=== PATIENT | female | born 1955 | race Caucasian/White ===

== ENCOUNTER 2019-03-15 09:18 | Outpatient (CLI) | payer MEDICARE, OTHER ==
[2019-03-15] MEDS ORDERED: Iopamidol-370 76% 500 ML 1 ML ONE (11:00)
--- NOTE | 2019-03-15 12:14 | CT ---
CT ABDOMEN AND PELVIS WITH AND WITHOUT IV CONTRAST: HISTORY: Left upper quadrant pain. Left flank pain. Elevated CEA levels on blood work. FINDINGS: There are minimal dependent changes in the lung bases. A small hiatal hernia is noted. No calcified g allstones are seen. The liver demonstrates diffusely decreased attenuation compared to the spleen, co nsistent with fatty infiltration. The spleen, pancreas and adrenal glands are normal. No calculi are seen in the kidneys, ureters or urinary bladder on either side. No hydroureteronephros is is seen. There is a 9 mm fat-containing lesion in the left renal cortex, consistent with angiomyol ipoma. No free air, free fluid or lymphadenopathy is seen in the abdomen or pelvis. There are vascular calci fications without evidence of aneurysmal dilatation of the abdominal aorta. Small bowel loops are not abnormally dilated. There are degenerative changes in the spine. The patient is post hysterectomy. T here is mild sigmoid diverticulosis. IMPRESSION: 1. Fatty liver. 2. Small hiatal hernia. 3. Small left renal angiomyolipoma. 4. No CT evidence of urinary tract calculi or obstruction. 5. Mild sigmoid diverticulosis. POS: [facility]
== END 2019-03-15 09:19 | disposition home or self-care (01) ==
LOC: BICCT 09:18
PROVIDERS: ATTEND Internal Medicine
DX: R97.0 Elevated carcinoembryonic antigen [CEA] (principal); R47.01 Aphasia; R10.12 Left upper quadrant pain; K76.0 Fatty (change of) liver, not elsewhere classified; K44.9 Diaphragmatic hernia without obstruction or gangrene; K57.30 Diverticulosis of large intestine without perforation or abscess without bleeding; D17.9 Benign lipomatous neoplasm, unspecified
CPT/HCPCS: 74178; 82565; Q9967

== ENCOUNTER 2020-05-24 12:33 | Inpatient (IN) | payer MEDICARE, OTHER ==
[~2020-05-24 12:33] MED LIST: Aminocaproic Acid 5 GM/20 ML VIAL ONE; Calcium Chloride 1 GM/10 ML Abboject SYRINGE ONE; Cardioplegic Soln 1,000 ML BAG ONE; Dexamethasone 20 MG/5 ML VIAL ONE; Glycopyrrolate 0.2 MG/ML 5 ML SYRINGE ONE; Heparin 30,000 units/30 ml VIAL ONE; Heparin 5,000 UNITS/ML VIAL ONE; Ketorolac Tromethamine 30 MG/ML VIAL ONE; Lidocaine 1% PF 5 ML VIAL ONE; Magnesium Sulfate 1 GM/2 ML VIAL ONE; Mannitol 12.5 GM/50 ML ONE; Nitroglycerin 50 MG/250 ML BOT ONE; Norepinephrine 4 MG/4 ML VIAL ONE; Ondansetron PF 4 MG/2 ML Vial ONE; PROPOFOL 200 MG/20 ML VIAL ONE; Papaverine 60 MG/2 ML VIAL ONE; Potassium Chloride 60 MEQ/30 ML VIAL ONE; Protamine Sulfate 250 MG/25 ML VIAL ONE; Sodium Bicarb 50 MEQ/50 ML Abboject 8.4% SYRINGE ONE; Thrombin 5000 UNITS/5 ML VIAL ONE; Vecuronium 10 MG VIAL ONE
[2020-05-24] MEDS ORDERED: Midazolam HCl 2 mg/2 ml Vial ONE (13:59)
[2020-05-24] MEDS ORDERED: Fentanyl 100 MCG/2 ML VIAL ONE (13:59)
[2020-05-24] MEDS ORDERED: Albumin 5% 250 ML ONE ×2 (15:55)
[2020-05-24] MEDS ORDERED: Post-Op Insulin Drip Protocol IVPB PRN (15:57)
[2020-05-24] MEDS ORDERED: Promethazine HCl 25 MG/ML VIAL IM PRN (15:57)
[2020-05-24] MEDS ORDERED: Hetastarch 6% 500 ML 500 ML IVPB PRN (15:57)
[2020-05-24] MEDS ORDERED: Nitroglycerin 50 MG/250 ML BOT 250 ML IVPB PRN (15:57)
[2020-05-24] MEDS ORDERED: Bisacodyl 10 MG SUPP PR PRN (15:57)
[2020-05-24] MEDS ORDERED: niCARdipine 25 MG in Sodium Chloride 0.9% 250 ML 250 ML IVPB PRN (15:57)
[2020-05-24] MEDS ORDERED: HYDROcodone/Acetaminophen 5/325 mg Tablet PO PRN ×2 (15:57)
[2020-05-24] MEDS ORDERED: Norepinephrine 8 MG/0.9% NS 250 ML IVPB PRN (15:57)
[2020-05-24] MEDS ORDERED: Morphine 2 MG/ML VIAL SLOW IVP PRN (15:57)
[2020-05-24] MEDS ORDERED: hydrALAZINE 20 MG/ML VIAL SLOW IVP PRN (15:57)
[2020-05-24] MEDS ORDERED: Potassium Chloride 20 MEQ/100 ML PREMIX BAG IVPB PRN (15:57)
[2020-05-24] MEDS ORDERED: Bisacodyl 5 MG TAB PO PRN (15:57)
[2020-05-24] MEDS ORDERED: DOPamine 400 MG/D5W 250 ML 250 ML IVPB PRN (15:57)
[2020-05-24] MEDS ORDERED: Fentanyl 100 MCG/2 ML VIAL SLOW IVP PRN ×2 (15:57)
[2020-05-24] MEDS ORDERED: Acetaminophen 325 MG TAB PO PRN (15:57)
[2020-05-24] MEDS ORDERED: Magnesium 2 GM/50 ML 2 GM in Premix Bag 1 BAG IVPB SCH (15:57)
[2020-05-24] MEDS ORDERED: Guaifenesin DM 100-10/5 ML UDCUP PO PRN (15:57)
[2020-05-24] MEDS ORDERED: Mag-Al 1200 mg/1200 mg/30 ML UDCUP PO PRN (15:57)
[2020-05-24 16:08] LABS: Actual Bicarbonate (HCO3a) 20.5 mEq/L (22-28); Analyzer IN Cardio OR; Base Excess (BEa) -3.9 mEq/L (-2.0 to +3.0); CO2 Tension 35.1 mmHg (35.0-45.0); Calcium, Ionized (arterial) 1.13 mmol/L (1.12-1.30); Hemoglobin (Hb) 12.5 g/dL (12.0-16.0); O2 Tension (PaO2), arterial 83.6 mmHg (> 80.0); pH, Arterial 7.38 (7.35-7.45)
[2020-05-24 16:08] LABS: #Basophils 0.1 thou/uL (0.0-0.2); #Eosinphils 0.1 thou/uL (0.0-0.7); #Lymphocytes 1.6 thou/uL (1.20-3.40); #Monocytes 0.9 thou/uL (0.11-0.59); #Neutrophils 13.7 thou/uL (1.40-6.50); %Basophils 0.5 % (0.0-1.0); %Eosinophils 0.6 % (0.0-10.0); %Lymphocytes 9.6 % (21.0-51.0); %Monocytes 5.2 % (0.0-10.0); Hemoglobin 12.7 g/dL (12.0-16.0); Mean Corpuscular Hemoglobin 32.9 pg (27.0-31.0); Mean Platelet Volume 7.3 fL (7.4-10.4); Platelet Count 154 thou/uL (130-400); RBC Distribution Width 11.4 % (11.5-14.5); Red Blood Cell (RBC) Count 3.87 mill/uL (4.20-5.40); White Blood Cell (WBC) Count 16.3 thou/uL (4.8-10.8)
[2020-05-24 16:14] LABS: ALV-art Gradient 157.725 mmHg (0-20); Puncture Site Arterial Line
[2020-05-24 16:14] LABS: INR-International Normal Ratio 1.3; PTT 34.9 sec (22.9-36.1); Prothrombin Time 15.9 sec (12.0-14.7)
[2020-05-24] MEDS ORDERED: HUMULIN R 100 UNITS in Sodium Chloride 0.9% 100 ML IVPB SCH ×2 (16:15→16:30)
[2020-05-24] MEDS ORDERED: Dextrose 50% Abboject 50 ML SYRINGE SLOW IVP PRN ×2 (16:15→16:30)
[2020-05-24] MEDS ORDERED: Dextrose 5% in Water 1,000 ML IV PRN ×2 (16:15→16:30)
[2020-05-24 16:29] LABS: Anion Gap 13 mmol/L (10-20); BUN (Urea Nitrogen) 10 mg/dL (9.8-20.1); Calc. Creatinine Clearance 0 mL/min (70-130); Calcium 8.3 mg/dL (7.8-10.44); Carbon Dioxide 21 mmol/L (23-31); Chloride 112 mmol/L (98-107); Glucose 144 mg/dL (80-115); Potassium 4.3 mmol/L (3.5-5.1); Sodium 142 mmol/L (136-145)
[2020-05-24] MEDS: Insulin Regular 300 UNITS/3 ML VIAL SC PRN ×2 (16:36→21:47)
[2020-05-24] MEDS: CEFAZOLIN 2 GM in Premix Bag 1 BAG IVPB SCH ×2 (16:50→23:40)
[2020-05-24] MEDS: Lactated Ringer's 1,000 ML IV SCH (16:53)
[2020-05-24] MEDS: Ketorolac Tromethamine 30 MG/ML VIAL IVP SCH ×2 (18:10→23:40)
[2020-05-24 19:49] LABS: Actual Bicarbonate (HCO3a) 18.2 mEq/L (22-28); Base Excess (BEa) -2.6 mEq/L (-2.0 to +3.0); Calcium, Ionized (arterial) 1.12 mmol/L (1.12-1.30); Hemoglobin (Hb) 11.6 g/dL (12.0-16.0); Potassium - ABG Lab 3.92 mmol/L (3.70-5.30); pH, Arterial 7.54 (7.35-7.45)
[2020-05-24 20:04] LABS: CO2 Tension 21.6 mmHg (35.0-45.0); Puncture Site Arterial Line
[2020-05-24] MEDS ORDERED: Atorvastatin Calcium 10 MG TAB PO SCH (21:00)
[2020-05-24] MEDS: Famotidine/PF 20 mg/2ml Vial SLOW IVP SCH (21:18)
[2020-05-24 21:23] LABS: Hemoglobin 11.3 g/dL (12.0-16.0)
[2020-05-24] MEDS: Ondansetron PF 4 MG/2 ML Vial IVP PRN (21:23)
[2020-05-24 21:40] LABS: Glucose 166 mg/dL (80-115)
[2020-05-25] MEDS: Lactated Ringer's 1,000 ML IV SCH (03:01)
[2020-05-25] MEDS: Ondansetron PF 4 MG/2 ML Vial IVP PRN (03:01)
[2020-05-25 04:56] LABS: #Lymphocytes 0.6 thou/uL (1.20-3.40); #Monocytes 0.7 thou/uL (0.11-0.59); #Neutrophils 7.9 thou/uL (1.40-6.50); %Basophils 0.1 % (0.0-1.0); %Eosinophils 0.1 % (0.0-10.0); %Lymphocytes 6.3 % (21.0-51.0); %Monocytes 7.5 % (0.0-10.0); %Neutrophils 86.1 % (42.0-75.0); Hemoglobin 9.4 g/dL (12.0-16.0); Mean Corpuscular HGB CONC 33.7 g/dL (32.0-36.0); Mean Corpuscular Hemoglobin 31.6 pg (27.0-31.0); Mean Corpuscular Volume 93.7 fL (78.0-98.0); Mean Platelet Volume 7.6 fL (7.4-10.4); Platelet Count 134 thou/uL (130-400); RBC Distribution Width 11.4 % (11.5-14.5); Red Blood Cell (RBC) Count 2.98 mill/uL (4.20-5.40); White Blood Cell (WBC) Count 9.2 thou/uL (4.8-10.8)
[2020-05-25 05:16] LABS: Anion Gap 10 mmol/L (10-20); BUN (Urea Nitrogen) 16 mg/dL (9.8-20.1); Calc. Creatinine Clearance 98 mL/min (70-130); Calcium 7.4 mg/dL (7.8-10.44); Carbon Dioxide 25 mmol/L (23-31); Chloride 110 mmol/L (98-107); Glucose 129 mg/dL (80-115); Potassium 3.6 mmol/L (3.5-5.1); Sodium 141 mmol/L (136-145)
[2020-05-25] MEDS: Ketorolac Tromethamine 30 MG/ML VIAL IVP SCH ×4 (06:31→23:08)
[2020-05-25] MEDS: Famotidine/PF 20 mg/2ml Vial SLOW IVP SCH (08:24)
[2020-05-25] MEDS: CEFAZOLIN 2 GM in Premix Bag 1 BAG IVPB SCH (08:24)
[2020-05-25] MEDS ORDERED: Aspirin 325 MG TAB PO SCH (09:00)
[2020-05-25] MEDS ORDERED: Nitroglycerin 0.4 MG TAB (25 Tab Bottle) SL PRN (09:33)
[2020-05-25] MEDS ORDERED: diphenhydrAMINE 25 MG CAP PO PRN (09:33)
[2020-05-25] MEDS ORDERED: traMADol HCl 50 MG TAB PO PRN ×2 (09:33)
[2020-05-25] MEDS ORDERED: Mineral Oil ENEMA PR PRN (09:33)
[2020-05-25] MEDS ORDERED: Mag-Al 1200 mg/1200 mg/30 ML UDCUP PO PRN (09:33)
[2020-05-25] MEDS ORDERED: Guaifenesin DM 100-10/5 ML UDCUP PO PRN (09:33)
[2020-05-25] MEDS ORDERED: Bisacodyl 10 MG SUPP PR PRN (09:33)
[2020-05-25] MEDS ORDERED: Milk Of Magnesia 30 ML UDCUP PO PRN (09:33)
[2020-05-25] MEDS ORDERED: Bisacodyl 5 MG TAB PO PRN (09:33)
[2020-05-25] MEDS ORDERED: Fentanyl 100 MCG/2 ML VIAL SLOW IVP PRN (09:33)
[2020-05-25] MEDS ORDERED: Zolpidem Tartrate 5 MG TAB PO PRN (09:33)
[2020-05-25] MEDS ORDERED: Fish Oil 1,000 MG CAP PO SCH (15:00)
[2020-05-25] MEDS: Rosuvastatin 20 MG TAB PO SCH (19:40)
[2020-05-25] MEDS: Fish Oil 1,000 MG CAP PO SCH (19:40)
[2020-05-25] MEDS: Acetaminophen 325 MG TAB PO PRN (23:08)
[2020-05-26] MEDS: Ketorolac Tromethamine 30 MG/ML VIAL IVP SCH ×3 (05:01→17:17)
[2020-05-26] MEDS: Aspirin 325 mg Enteric Coated Tablet PO SCH (08:14)
[2020-05-26] MEDS: Potassium Chloride 10 MEQ TAB PO SCH (08:14)
[2020-05-26] MEDS: Furosemide 40 MG TAB PO SCH (08:14)
[2020-05-26] MEDS: Fish Oil 1,000 MG CAP PO SCH ×4 (08:14→21:25)
[2020-05-26] MEDS ORDERED: Amiodarone 150 MG, Admixture Fee 1 EACH in Dextrose 5% in Water 100 ML IVPB SCH (08:15)
[2020-05-26] MEDS: Amiodarone 450 MG, Admixture Fee 1 EACH in Dextrose 5% in Water 250 ML IVPB SCH ×2 (08:22→15:49)
[2020-05-26] MEDS ORDERED: Non-Formulary Item 1 EACH (Rosuvastatin Calcium [Crestor] 40 MG Tablet) PO SCH (09:00)
[2020-05-26] MEDS ORDERED: Ondansetron PF 4 MG/2 ML Vial ONE (10:55)
[2020-05-26] MEDS ORDERED: Ondansetron PF 4 MG/2 ML Vial IVP PRN (11:32)
[2020-05-26] MEDS ORDERED: Ondansetron ODT 4 MG TAB PO PRN (11:32)
[2020-05-26] MEDS: Acetaminophen 325 MG TAB PO PRN (16:56)
[2020-05-26] MEDS: Rosuvastatin 20 MG TAB PO SCH (21:25)
[2020-05-27] MEDS: Ketorolac Tromethamine 30 MG/ML VIAL IVP SCH ×2 (01:25→09:19)
[2020-05-27] MEDS: Enoxaparin Sodium 30 MG/0.3 ML SYRINGE SC SCH (09:08)
[2020-05-27] MEDS: Fish Oil 1,000 MG CAP PO SCH ×3 (09:09→21:39)
[2020-05-27] MEDS: Aspirin 325 mg Enteric Coated Tablet PO SCH (09:10)
[2020-05-27] MEDS: Atenolol 25 MG TAB PO SCH (09:10)
[2020-05-27] MEDS: Amiodarone 200 MG TAB PO SCH ×2 (09:11→21:38)
[2020-05-27] MEDS: Potassium Chloride 10 MEQ TAB PO SCH (09:11)
[2020-05-27] MEDS: Furosemide 40 MG TAB PO SCH (09:11)
[2020-05-27] MEDS: Rosuvastatin 20 MG TAB PO SCH (21:39)
[2020-05-28 08:57] VITALS: TEMP 98.8
[2020-05-28] MEDS: Enoxaparin Sodium 30 MG/0.3 ML SYRINGE SC SCH (09:05)
[2020-05-28] MEDS: Atenolol 25 MG TAB PO SCH (09:06)
[2020-05-28] MEDS: Aspirin 325 mg Enteric Coated Tablet PO SCH (09:06)
[2020-05-28] MEDS: Potassium Chloride 10 MEQ TAB PO SCH (09:07)
[2020-05-28] MEDS: Furosemide 40 MG TAB PO SCH (09:07)
[2020-05-28] MEDS: Amiodarone 200 MG TAB PO SCH (09:07)
[2020-05-28] MEDS: Fish Oil 1,000 MG CAP PO SCH ×2 (09:08→14:31)
[2020-05-28 11:24] VITALS: BP 99/50
== END 2020-05-28 14:31 | disposition home or self-care (01) | DRG 236 ==
LOC: SURG A 12:33 → CCU 15:56 → 2NO 05-26 14:49
PROVIDERS: ADMIT Thoracic Surgery (Cardiothoracic Vascular Surgery); ATTEND Thoracic Surgery (Cardiothoracic Vascular Surgery)
PROC: 02100Z9 Bypass Coronary Artery, One Artery from Left Internal Mammary, Open Approach (ICD-10-PCS; principal; 2020-05-24)
PROC: 021209W Bypass Coronary Artery, Three Arteries from Aorta with Autologous Venous Tissue, Open Approach (ICD-10-PCS; 2020-05-24)
PROC: 06BQ4ZZ Excision of Left Saphenous Vein, Percutaneous Endoscopic Approach (ICD-10-PCS; 2020-05-24)
PROC: 5A1221Z Performance of Cardiac Output, Continuous (ICD-10-PCS; 2020-05-24)
DX: I25.10 Atherosclerotic heart disease of native coronary artery without angina pectoris (principal); Z90.710 Acquired absence of both cervix and uterus; Z90.49 Acquired absence of other specified parts of digestive tract; Z90.89 Acquired absence of other organs; I48.91 Unspecified atrial fibrillation
CPT/HCPCS: 36415; 36416; 36430; 71045; 80048; 80053; 80061; 82553; 82805; 84484; 85025; 85347; 85610; 85730; 86850; 86900; 86901; 92978; 92979; 93005; 93010; 93459; 93798; 94002; 94150; 97139; 99152; 99153; C1753; G0378; J0153; J0282; J0690; J1100; J1644; J1650; J1885; J2001; J2150; J2250; J2405; J2440; J2704; J2720; J3010; J3370; J3475; J3480; J7050; J7070; P9045; Q0162; S0017; S0028; U0002

== ENCOUNTER 2020-06-17 15:50 | Outpatient (CLI) | payer MEDICARE, OTHER | END 2020-06-17 15:51 | disposition home or self-care (01) | LOC: BICRAD 15:50 | PROVIDERS: ATTEND Thoracic Surgery (Cardiothoracic Vascular Surgery) | DX: I25.110 Atherosclerotic heart disease of native coronary artery with unstable angina pectoris (principal); J98.11 Atelectasis; J94.8 Other specified pleural conditions | CPT/HCPCS: 71046 ==

== ENCOUNTER 2020-06-25 10:11 | Outpatient (CLI) | payer MEDICARE, OTHER | END 2020-06-25 10:12 | disposition home or self-care (01) | LOC: BICRAD 10:11 | PROVIDERS: ATTEND Thoracic Surgery (Cardiothoracic Vascular Surgery) | DX: I25.110 Atherosclerotic heart disease of native coronary artery with unstable angina pectoris (principal); J90 Pleural effusion, not elsewhere classified; R91.8 Other nonspecific abnormal finding of lung field | CPT/HCPCS: 71046 ==

== ENCOUNTER 2020-08-07 08:13 | Outpatient (CLI) | payer MEDICARE, OTHER | END 2020-08-07 08:14 | disposition home or self-care (01) | LOC: BICRAD 08:13 | PROVIDERS: ATTEND Internal Medicine Critical Care Medicine | DX: R06.00 Dyspnea, unspecified (principal); J98.4 Other disorders of lung | CPT/HCPCS: 71046 ==

== ENCOUNTER 2020-09-20 16:30 | Outpatient (CLI) | payer MEDICARE, OTHER | END 2020-09-20 16:31 | disposition home or self-care (01) | LOC: SLEEPLAB 16:30 | PROVIDERS: ATTEND Internal Medicine Critical Care Medicine | DX: G47.33 Obstructive sleep apnea (adult) (pediatric) (principal); R09.89 Other specified symptoms and signs involving the circulatory and respiratory systems; R06.83 Snoring; G47.00 Insomnia, unspecified | CPT/HCPCS: 95806 ==

== ENCOUNTER 2024-05-02 12:47 | Outpatient (CLI) | payer MEDICARE, OTHER ==
[~2024-05-02 12:47] MED LIST changes: -Aminocaproic Acid 5 GM/20 ML VIAL ONE; -Calcium Chloride 1 GM/10 ML Abboject SYRINGE ONE; -Cardioplegic Soln 1,000 ML BAG ONE; -Dexamethasone 20 MG/5 ML VIAL ONE; -Glycopyrrolate 0.2 MG/ML 5 ML SYRINGE ONE; -Heparin 30,000 units/30 ml VIAL ONE; -Heparin 5,000 UNITS/ML VIAL ONE; +Iopamidol 370 76% 100 ML VIAL ONE; -Ketorolac Tromethamine 30 MG/ML VIAL ONE; -Lidocaine 1% PF 5 ML VIAL ONE; -Magnesium Sulfate 1 GM/2 ML VIAL ONE; -Mannitol 12.5 GM/50 ML ONE; -Nitroglycerin 50 MG/250 ML BOT ONE; -Norepinephrine 4 MG/4 ML VIAL ONE; -Ondansetron PF 4 MG/2 ML Vial ONE; -PROPOFOL 200 MG/20 ML VIAL ONE; -Papaverine 60 MG/2 ML VIAL ONE; -Potassium Chloride 60 MEQ/30 ML VIAL ONE; -Protamine Sulfate 250 MG/25 ML VIAL ONE; -Sodium Bicarb 50 MEQ/50 ML Abboject 8.4% SYRINGE ONE; -Thrombin 5000 UNITS/5 ML VIAL ONE; -Vecuronium 10 MG VIAL ONE
== END 2024-05-02 12:48 | disposition home or self-care (01) ==
LOC: BICCT 12:47
PROVIDERS: ATTEND Internal Medicine Cardiovascular Disease
DX: N28.89 Other specified disorders of kidney and ureter (principal); K76.0 Fatty (change of) liver, not elsewhere classified; N28.1 Cyst of kidney, acquired
CPT/HCPCS: 36415; 74178; 82565

== ENCOUNTER 2024-12-01 09:14 | Outpatient (CLI) | payer MEDICARE, OTHER ==
[2024-12-01 09:55] LABS: Estimated GFR - POC 68.0
[2024-12-01] MEDS ORDERED: Iopamidol 370 76% 100 ML VIAL ONE (15:33)
== END 2024-12-01 09:15 | disposition home or self-care (01) ==
LOC: CT 09:14
PROVIDERS: ATTEND Internal Medicine Cardiovascular Disease
DX: N28.89 Other specified disorders of kidney and ureter (principal); N28.1 Cyst of kidney, acquired; N94.89 Other specified conditions associated with female genital organs and menstrual cycle
CPT/HCPCS: 36415; 74178; 82565